=== PATIENT | female | born 1985 | race American Indian/Alaskan Native ===

== ENCOUNTER 2017-07-03 17:10 | Emergency (ER) | payer BC ==
[2017-07-03] MEDS ORDERED: HYDROmorphone 2 MG/ML SDV IM ONE (17:54)
[2017-07-03] MEDS ORDERED: Ondansetron 4 MG Tab.DIS PO PRN (17:54)
[2017-07-03 18:51] VITALS: BP 134/70
[2017-07-03] MEDS ORDERED: Acetaminophen/HYDROcodone 325-5 MG Tab PO ONE (18:58)
--- NOTE | 2017-07-06 11:52 | CR ---
INDICATION: Right knee pain. No history of trauma. RIGHT KNEE: Three views of the right knee, 07/03/2017, were compared with 07/10, and revealed an appearance of progressive hypertrophic degenerative changes at the patellofemoral joint, which are mild to moderate in degree of severity. Minimal hypertrophic changes are noted at the intercondylar notch and spines, similar to the previous study, with similar hypertrophic changes off the femur and tibia medially and especially laterally, also again noted and unchanged. Femorotibial joint spaces appear to be unchanged. Patellofemoral joint space is maintained also, but may be slightly narrowed superiorly compared with the previous study. No acute bone or joint abnormality was suggested. Bone density appeared to be normal. IMPRESSION: Progressive osteoarthritis mostly at the patellofemoral joint. MTDD
--- NOTE | 2017-07-06 15:30 | ER ---
DATE SEEN: 07/03/2017 TIME: The patient was seen at 1745 hours. HISTORY OF PRESENT ILLNESS: This is a 31-year-old single [employer] employee. She states she was walking on 07/01/2016, and she experienced a pop in her right knee. When she does work, she usually sits on a stool and does not bend her knees a lot. She does not have an effusion. She has pain in the popliteal fossa area, it is 9/10 in intensity. She denies any paresis or weakness of lower extremities. PAST MEDICAL AND SURGICAL HISTORY: 1. Right ankle ligamentous tear and tendinous repair. 2. Arthroscopy in 2012 of right knee. 3. Appendectomy. The patient has difficulty bearing weight in her foot. She has pain with walking, and going up and down stairs or any horizontal walking. She has not taken pain medicines for this. Past medical history is otherwise negative. MEDICATIONS: None. ALLERGIES: None. PHYSICAL EXAMINATION: VITAL SIGNS: Blood pressure was 143/90, heart rate was 101, respirations were 16, oxygen saturation was 98%, and temperature was 36.7 degrees centigrade. CONSTITUTIONAL: The patient is well dressed, alert, morbidly obese woman, in moderate distress. HEENT: Negative. LUNGS: Clear. HEART: Without murmur. ABDOMEN: Soft with increased abdominal girth. EXTREMITIES: No edema in lower extremities. She has pain in the medial and lateral right joint line of the knee. Moderate patellar pain. No patellar grind. No crepitus noted. No step-off or tendinous structures of upper or lower knee. No compromised motion of the patella with flexion and extension. She has difficulty flexing and extending the knee because of pain. She has popliteal fullness bilaterally and symmetrically in the knees. Mild tenderness in the gastrocnemius. Dorsalis pedis is intact. No pedal edema. DIAGNOSTIC STUDIES: X-ray does not reveal the abnormalities suggestion of slight narrowing of the joint space medially. No effusion was noted. ASSESSMENT: 1. Rule out right internal knee derangement. 2. Status post previous right knee arthroscopy suggests she had a partial meniscectomy before. Perhaps a continuation of meniscectomy into a more complete tear. 3. Premorbid obesity. 4. Hypertension. 5. The patient received Dilaudid 2 mg IM plus Zofran 4 mg. She had mild diaphoresis and did not have postural hypotension, she felt warm approximately 30 minutes after the shot was given to patient. No postural hypotension. 6. She has a brace placed on her knee. She is able to walk with this. PLAN: Use wheelchair and/or walk with use of crutches. She has crutches at home. Follow up with doctor in a week. May work while sitting, but prefered to observe walking to 10% at the workplace. Gradually progress to increased activity as tolerated and ice and elevate. /[id number] BERONICA/SIMÓNL
== END 2017-07-03 19:00 | disposition home or self-care (01) ==
LOC: FB.ED 17:10
DX: M25.561 Pain in right knee (principal); I10 Essential (primary) hypertension; E66.8 Other obesity; R61 Generalized hyperhidrosis; Z98.890 Other specified postprocedural states
CPT/HCPCS: 73562; 96372; 99283; A9270; J1170

== ENCOUNTER 2020-04-27 12:01 | Emergency (ER) | payer BC ==
[2020-04-27] MEDS ORDERED: Albuterol/Ipratropium 3.0-0.5 MG/3 ML Neb Soln ONE (12:05)
[2020-04-27] MEDS ORDERED: Albuterol/Ipratropium 3.0-0.5 MG/3 ML Neb Soln NEB ONE ×2 (12:05→12:23)
--- NOTE | 2020-04-27 12:22 | EDM.PDOC ---
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 and started having difficulty breathing Pt is a know asthmatic States yesterday she had to use her nebulizer at home 2 times with no obvious triggers though notes she reacts when too humid or 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 this am feeling well Onset: Today Onset Date: 04/27/20 Onset Time: 10:30 Duration: Getting Worse Location: Reports: Chest Quality: Reports: Sharp Severity: Moderate Improves with: Reports: Medication Context: Reports: Other (Was at [facility] [employer] at work) Associated Symptoms: Reports: Malaise, Shortness of Breath, Weakness Right Breast Pain Score (Numeric/FACES): 8 - Related Data Allergies Allergy/AdvReac Type Severity Reaction Status Date / Time montelukast [From Singulair] Allergy Rash Verified 04/27/20 14:27 Home Meds: Home Meds predniSONE [Prednisone] 50 mg PO DAILY #5 tablet 04/27/20 [Rx] Past Medical History - Past Health History Medical/Surgical History: Denies Medical/Surgical History Respiratory History: Reports: Asthma Musculoskeletal History: Reports: Arthritis - Past Surgical History GI Surgical History: Reports: Appendectomy Social & Family History - Family History Family Medical History: No Pertinent Family History - Caffeine Use Caffeine Use: Reports: Coffee, Energy Drinks, Soda, Tea ED ROS GENERAL - Review of Systems Review Of Systems: See Below Constitutional: Denies: Fever, Chills, Malaise HEENT: Reports: No Symptoms Respiratory: Reports: Shortness of Breath, Wheezing, Cough, Sputum. Denies: Pleuritic Chest Pain Cardiovascular: Reports: No Symptoms Endocrine: Reports: No Symptoms GI/Abdominal: Reports: No Symptoms Musculoskeletal: Reports: No Symptoms Skin: Reports: No Symptoms Neurological: Reports: No Symptoms. Denies: Headache Psychiatric: Reports: Anxiety Hematologic/Lymphatic: Reports: No Symptoms ED EXAM, GENERAL - Physical Exam Exam: See Below Exam Limited By: No Limitations General Appearance: Alert, WD/WN, No Apparent Distress Eye Exam: Bilateral Eye: EOMI Ears: Normal External Exam Nose: Normal Inspection Throat/Mouth: Normal Oropharynx Head: Atraumatic, Normocephalic Neck: Supple, Non-Tender Respiratory/Chest: Decreased Breath Sounds, Rhonchi, Wheezing Cardiovascular: Regular Rate, Rhythm GI/Abdominal: Soft, Non-Tender Back Exam: Normal Inspection, Full Range of Motion Extremities: Normal Inspection, Normal Range of Motion Neurological: Alert, Oriented Psychiatric: Normal Affect, Normal Mood Course - Vital Signs Last Recorded V/S: Last Vital Signs Temp Pulse 93 04/27/20 12:30 Resp 28 H 04/27/20 12:30 BP 154/114 H 04/27/20 12:30 Pulse Ox 98 04/27/20 12:30 - Orders/Labs/Meds Meds: Medications Discontinued Medications Generic Name Dose Route Start Last Admin Trade Name Harveyq PRN Reason Stop Dose Admin Albuterol/Ipratropium Confirm 04/27/20 12:05 04/27/20 12:45 Duoneb 3.0-0.5 Mg/3 Ml Administered 04/27/20 12:06 Not Given Dose 3 ml .ROUTE .STK-MED ONE Albuterol/Ipratropium 3 ml 04/27/20 12:23 04/27/20 12:23 Duoneb 3.0-0.5 Mg/3 Ml NEB 04/27/20 12:24 3 ml ONETIME ONE Administration Albuterol/Ipratropium 3 ml 04/27/20 12:05 04/27/20 12:05 Duoneb 3.0-0.5 Mg/3 Ml NEB 04/27/20 12:06 3 ml ONETIME ONE Administration Methylprednisolone Sodium Succinate 125 mg 04/27/20 12:30 04/27/20 12:41 Solu-Medrol IVPUSH 04/27/20 12:31 125 mg ONETIME ONE Administration - Re-Assessments/Exams Free Text/Narrative Re-Assessment/Exam: 04/27/20 13:50 pt had albuterol neb on arrival ( was having audible wheezing) ,initially was coughing a lot, but gradually improved , till was breathing better by the time she was done with the nebulizer) Given iv solumedrol and then repeat Neb( Duoneb). No longer has chest pain or shortness of breath , is no longer wheezing 04/28/20 12:17 Departure - Departure Time of Disposition: 14:13 Disposition: Home, Self-Care 01 Condition: Good Clinical Impression: Asthma with acute exacerbation in adult, Asthma with severe exacerbation, Asthma without status asthmaticus without complication - Discharge Information *PRESCRIPTION DRUG MONITORING PROGRAM REVIEWED*: Not Applicable *COPY OF PRESCRIPTION DRUG MONITORING REPORT IN PATIENT KENNETH: Not Applicable Prescriptions: predniSONE [Prednisone] 50 mg PO DAILY #5 tablet Instructions: Bronchospasm, Adult, [id number], Asthma Attack Prevention, Adult Referrals: Vincent Alston MD [Primary Care Provider] - Forms: ED Department Discharge Additional Instructions: Keep using Nebulizer 2 times a days for the next 5 days Complete 5 days of prednisone as prescribed Make appointment to see your doctor if symptoms get worse
[2020-04-27] MEDS ORDERED: methylPREDNISolone Sodium Succinate 125 MG/2 ML SDV IVPUSH ONE (12:30)
[2020-04-27 12:31] VITALS: BP 154/114; PULSE 93
== END 2020-04-27 14:15 | disposition home or self-care (01) ==
LOC: FB.ED 12:01
DX: J45.901 Unspecified asthma with (acute) exacerbation (principal); Z88.8 Allergy status to other drugs, medicaments and biological substances
CPT/HCPCS: 94640; 96374; 99284; J2930; J7620-GY